=== PATIENT | female | born 1995 | race Caucasian/White ===

== ENCOUNTER 2017-06-22 20:15 | Inpatient (IN) | payer OTHER ==
[~2017-06-22] VITALS: Ht 154.9 cm; Wt 85.7 kg
[2017-06-22] MEDS ORDERED: AMPICILLIN 2,000 MG in NACL 0.9% MINI-BAG PLUS 100 ML IV SCH (21:05)
[2017-06-22] MEDS ORDERED: OXYTOCIN 10 UNITS/ML VIAL IM SCH (21:05)
[2017-06-22] MEDS ORDERED: LACTATED RINGERS 500 ML IV ONE (21:05)
[2017-06-22] MEDS ORDERED: OXYTOCIN 20 UNITS in LACTATED RINGERS 1,000 ML IV SCH (21:10)
[2017-06-22 21:15] VITALS: BP 119/57
[2017-06-22 21:45] LABS: BASOPHILS % (AUTO) 0.2 % (0.0-2.0); EOSINOPHILS # (AUTO) 0.1 K/uL (0-0.4); EOSINOPHILS % (AUTO) 1.2 % (0.0-4.0); HEMATOCRIT 30.3 % (36-48); HEMOGLOBIN 9.9 g/dL (12.0-16.0); LYMPHOCYTES # (AUTO) 1.8 K/uL (2.5-16.5); LYMPHOCYTES % (AUTO) 20.4 % (20.5-51.1); MEAN CORPUSCULAR HEMOGLOBIN 26 pg (27-31); MEAN CORPUSCULAR HGB CONC 33 g/dL (33-37); MEAN CORPUSCULAR VOLUME 79.8 fL (80-94); MONOCYTES # (AUTO) 0.8 K/uL (0.8-1.0); MONOCYTES % (AUTO) 8.4 % (1.7-9.3); NEUTROPHILS # (AUTO) 6.3 K/uL (1.8-7.7); NEUTROPHILS % (AUTO) 69.8 % (42.2-75.2); PLATELET COUNT (AUTO) 190 K/uL (140-450); RED CELL DISTRIBUTION WIDTH 17.3 % (11.6-13.7)
[2017-06-22] MEDS ORDERED: AMPICILLIN 2,000 MG VIAL ONE (21:52)
[2017-06-22] MEDS ORDERED: MISOPROSTOL 25 MCG TAB ONE (21:53)
[2017-06-22 22:02] LABS: APPEARANCE,URINE CLEAR (CLEAR); BILIRUBIN,URINE NEGATIVE (NEGATIVE); BLOOD, URINE NEGATIVE (NEGATIVE); COLOR,URINE YELLOW (YELLOW); LEUKOCYTE ESTERASE ,URINE NEGATIVE (NEGATIVE); NITRITE, URINE NEGATIVE (NEGATIVE); PH,URINE 5.5 (5.0-9.0); UGLUCOSE NEGATIVE (NEGATIVE)
[2017-06-22] MEDS: LACTATED RINGERS 1,000 ML IV SCH (22:05)
[2017-06-22] MEDS: MISOPROSTOL 25 MCG TAB VG PRN (22:14)
[2017-06-22 22:23] LABS: BARBITURATE, URINE NEG. ng/ml (NEG <=200); BENZODIAZEPINE, URINE NEG. ng/mL (NEG <=200); CANNABINOID, URINE NEG. ng/mL (NEG <=50); COCAINE, URINE NEG. ng/mL (NEG <=300); OPIATE, URINE NEG. ng/mL (NEG <=2000); PHENCYCLIDINE SCREEN,URINE NEG. ng/mL (NEG <=25)
[2017-06-22] MEDS ORDERED: FERR-252 PO (23:23)
[2017-06-22] MEDS ORDERED: PREN-546 PO (23:23)
[2017-06-23] MEDS ORDERED: AMPICILLIN 1,000 MG VIAL ONE ×5 (02:09→17:35)
[2017-06-23] MEDS ORDERED: MISOPROSTOL 25 MCG TAB ONE ×2 (02:10→06:09)
[2017-06-23] MEDS: AMPICILLIN 1,000 MG in NACL 0.9% MINI-BAG PLUS 50 ML IV SCH ×3 (02:11→17:54)
[2017-06-23] MEDS: MISOPROSTOL 25 MCG TAB VG PRN ×2 (02:16→06:09)
[2017-06-23] MEDS: LACTATED RINGERS 1,000 ML IV SCH ×2 (08:34→17:05)
[2017-06-23] MEDS ORDERED: PROMETHAZINE 25 MG/ML VIAL ONE (09:03)
[2017-06-23] MEDS ORDERED: NALBUPHINE 10 MG/ML AMP ONE (09:03)
--- NOTE | 2017-06-23 09:17 | NUR ---
PATIENT HAS BEEN SCREENED AND CATEGORIZED LOW NUTRITION RISK. PATIENT WILL BE SEEN WITHIN 7 DAYS OF ADMISSION. 06/29/[address]
[2017-06-23] MEDS ORDERED: BUPIVACAINE 0.125%/NS PREMIX 250 ML ONE (11:04)
[2017-06-23] MEDS ORDERED: BUPIVACAINE 0.125%/NS PREMIX 250 ML EPI SCH (11:30)
[2017-06-23] MEDS ORDERED: OXYTOCIN 10 UNITS/ML VIAL ONE (22:16)
[2017-06-23] MEDS ORDERED: HYDROcodone/APAP 5/325 MG 1 TAB TAB PO PRN ×2 (22:30)
[2017-06-23] MEDS ORDERED: TEMAZEPAM 15 MG CAP PO PRN ×2 (22:30)
[2017-06-23] MEDS ORDERED: oxyCODONE/APAP 5/325 MG 1 TAB TAB PO PRN ×2 (22:30)
[2017-06-23] MEDS ORDERED: IBUPROFEN 800 MG TAB PO PRN ×2 (22:30)
[2017-06-23] MEDS ORDERED: METHYLERGONOVINE 0.2 MG/ML AMP IM PRN ×2 (22:30)
[2017-06-23] MEDS ORDERED: MEASLES, MUMPS, AND RUBELLA 1 VIAL SQVAC PRN ×2 (22:30)
[2017-06-23] MEDS ORDERED: OXYTOCIN 10 UNITS/ML VIAL IM PRN ×2 (22:30)
[2017-06-23] MEDS ORDERED: BENZOCAINE/MENTHOL 20%-0.5% 60 GM CAN TP PRN ×2 (22:30)
[2017-06-24 06:07] LABS: HEMATOCRIT 31.2 % (36-48); HEMOGLOBIN 10.1 g/dL (12.0-16.0)
[2017-06-24] MEDS ORDERED: DOCUSATE SOD/SENNA 50/8.6 MG 1 TAB PO SCH ×2 (21:00)
[2017-06-25] MEDS ORDERED: IBUP-1801 PO (11:32)
== END 2017-06-25 15:55 | disposition home or self-care (01) | DRG 560 ==
LOC: MLD 20:15 → MFCC 06-24 01:00
PROVIDERS: ADMIT Obstetrics & Gynecology; ATTEND Obstetrics & Gynecology
PROC: 10E0XZZ Delivery of Products of Conception, External Approach (ICD-10-PCS; principal; 2017-06-23)
PROC: 3E0P7VZ Introduction of Hormone into Female Reproductive, Via Natural or Artificial Opening (ICD-10-PCS; 2017-06-23)
PROC: 3E033VJ Introduction of Other Hormone into Peripheral Vein, Percutaneous Approach (ICD-10-PCS; 2017-06-23)
PROC: 3E0R3BZ Introduction of Anesthetic Agent into Spinal Canal, Percutaneous Approach (ICD-10-PCS; 2017-06-23)
PROC: 00HU33Z Insertion of Infusion Device into Spinal Canal, Percutaneous Approach (ICD-10-PCS; 2017-06-23)
DX: O99.824 Streptococcus B carrier state complicating childbirth (principal); Z37.0 Single live birth; Z3A.39 39 weeks gestation of pregnancy
CPT/HCPCS: 36415; 51702; 59200; 59409; 80305; 81003; 85018; 85025; 86592; 86886; 86900; 86901; J0290; J2300; J2550; J2590; J3490; J7120